=== PATIENT | male | born 1990 | race African-American/Black ===

== ENCOUNTER 2021-02-15 16:27 | Emergency (ER) | payer SELFPAY ==
[~2021-02-15] VITALS: Ht 177.8 cm; Wt 91.0 kg
[2021-02-15] MEDS ORDERED: ONDANSETRON HCL 4MG/2ML INJ IV STA (17:16)
[2021-02-15] MEDS ORDERED: SODIUM CHLORIDE 0.9% 1,000 ML IV ONE (17:30)
[2021-02-15 19:14] LABS: BASOPHILS % 0.4 % (0.0-2.0); EOSINOPHILS % 0.1 % (0.0-5.0); HEMATOCRIT. 42.7 % (42.0-52.0); HEMOGLOBIN. 14.8 g/dL (14.0-18.0); MEAN CORPUSCULAR HEMOGLOBIN 30.7 pg (28.0-32.0); MEAN CORPUSCULAR VOLUME 88.6 fL (80.0-94.0); MEAN PLATELET VOLUME 10.3 fl (7.4-10.4); NEUTROPHILS % 85.5 % (40.0-76.0); PLATELET 253 x1000/uL (130-400); RED BLOOD CELL COUNT 4.82 mill/uL (4.7-6.1); RED CELL DISTRIBUTION WIDTH 13.4 % (11.6-14.6)
[2021-02-15 19:21] LABS: CHLORIDE 101 mEq/L (98-107)
[2021-02-15 20:49] VITALS: BP 113/75
== END 2021-02-15 20:50 | disposition home or self-care (01) ==
LOC: ER 16:27
DX: R11.2 Nausea with vomiting, unspecified (principal); R42 Dizziness and giddiness; J45.909 Unspecified asthma, uncomplicated; Z88.0 Allergy status to penicillin
CPT/HCPCS: 36415; 80053; 83690; 85025; 96361; 96374; 99283; J2405; J7030; Z7610

== ENCOUNTER 2024-07-03 21:31 | Emergency (ER) | payer SELFPAY ==
[~2024-07-03] VITALS: Ht 185.4 cm; Wt 100.0 kg
[2024-07-03 21:37] VITALS: TEMP 37.1
[2024-07-03 21:53] VITALS: PULSE 101; RESP 28; O2SAT 99
[2024-07-03] MEDS: ALBUTEROL (0.5%) 2.5MG/0.5ML NEB HHN ONE (21:53)
[2024-07-03 22:22] VITALS: BP 96/68; PULSE 86; RESP 18; O2SAT 100
[2024-07-03] MEDS: SODIUM CHLORIDE 0.9% 1,000 ML IV ONE (22:27)
[2024-07-03] MEDS ORDERED: ALBU90AE INH (23:12)
== END 2024-07-03 23:29 | disposition home or self-care (01) ==
LOC: ER 21:31
DX: J45.909 Unspecified asthma, uncomplicated (principal); Z88.0 Allergy status to penicillin; Z79.899 Other long term (current) drug therapy
CPT/HCPCS: 94640; 99283; Z7610 ×3; 96360